=== PATIENT | female | born 1950 | race Two or more races ===

== ENCOUNTER 2022-06-11 05:36 | Day surgery (SDC) | payer OTHER ==
[~2022-06-11] VITALS: Ht 162.6 cm; Wt 65.3 kg
[~2022-06-11 05:36] MED LIST: SYNTHROID112 MCG PO
[2022-06-11] MEDS ORDERED: OXYC1TAB9 PO (09:27)
== END 2022-06-11 11:25 | disposition home or self-care (01) ==
LOC: CIR.AMB 05:36
PROVIDERS: ATTEND Surgery
DX: K64.2 Third degree hemorrhoids (principal); K62.5 Hemorrhage of anus and rectum; K62.89 Other specified diseases of anus and rectum; Z20.822 Contact with and (suspected) exposure to COVID-19